=== PATIENT | male | born 1990 | race Caucasian/White ===

== ENCOUNTER 2023-03-14 08:02 | Emergency (ER) | payer BC, SELFPAY ==
[2023-03-14 08:07] VITALS: BP 131/90; PULSE 84; RESP 16; TEMP 35.5; O2SAT 96; BMI 25.8
[2023-03-14 08:54] LABS: Basophils Absolute Auto 0.03 K/uL (0.00-0.30); Basophils Percent Auto 0.4 % (0.0-3.0); Eosinophils Absolute Auto 0.44 K/uL (0.00-0.50); Eosinophils Percent Auto 6.2 % (0.0-7.0); Hematocrit 47.1 % (37.0-53.0); Hemoglobin* 16.1 gm/dL (13.5-17.5); Immature Granulocytes Abs Auto 0.02 K/uL (0.00-0.30); Immature Granulocytes Pct Auto 0.3 %; Lymphocytes Percent Auto 25.4 % (20-44); Mean Corpuscular HGB Conc 34 gm/dL (32-36); Mean Corpuscular Hemoglobin 29 pg (26-34); Mean Corpuscular Volume 85 fL (80-100); Monocytes Percent Auto 6.2 % (0.0-11.0); Neutrophils Absolute Auto 4.36 K/uL (1.7-7.0); Neutrophils Percent Auto 61.5 % (42.0-72.0); Platelet Count* 223 K/uL (140-440); RDW Coefficient of Variation % 12.3 % (11.5-15.5); Red Blood Count 5.57 m/uL (4.30-5.90); Slide Review Reflex No; White Blood Count* 7.09 K/uL (4.50-11.00)
[2023-03-14 09:07] LABS: Albumin* 4.7 g/dL (3.3-5.0); Chloride* 103 mmol/L (96-114)
[2023-03-14 09:08] LABS: Potassium* 4.2 mmol/L (3.6-5.1); Sodium* 140 mmol/L (135-149)
[2023-03-14] MEDS: SUCRALFATE 1 GM TABLET PO (09:08)
[2023-03-14 09:10] LABS: Anion Gap 8 mEq/L (7-15); Aspartate Amino Transferase* 24 U/L (12-35); Bilirubin Total* 1.7 mg/dL (0.1-1.5); Carbon Dioxide* 29 mmol/L (20-32); Creatinine* 0.9 mg/dL (0.5-1.5); Est. Creatinine Clearance* 125.74; Estimated Glomerular Filt Rate 114 ml/min; Total Protein* 7.2 g/dL (6.0-8.3)
--- NOTE | 2023-03-14 09:10 | ED.GENADULT ---
HPI - General Adult General Date Seen: 03/14/23 Chief complaint: Abdominal Pain Stated complaint: abdominal pain, lower back pain Time Seen by Provider: 03/14/23 08:13 History of Present Illness HPI narrative: This is a pleasant 33-year-old male with a past medical history including depression, anxiety, prior appendectomy, otherwise generally healthy who presents to the ER today with subxiphoid/epigastric abdominal pain. He does note that he has a history of some chronic pain affecting his lower back. It generally is an irritant but not bothersome enough that he would normally take medicines for it. He does not really need to see a doctor or a customer retention specialist for it. He takes ibuprofen or Tylenol perhaps once a month for his back. His back pain has been a little bit worse for the past couple of days, without any clear trigger. However, he is not really here for his back pain. He notes that since about 2:00 p.m. yesterday he has been having upper central abdominal pain. He ate turkey sandwich at a corner bar yesterday afternoon and then about 2 hours after that began to have pain. Pain has been sharp. It has been continuous. It was bothersome yesterday evening any thought about coming to the ER, but he wanted to wait to see if the pain would go away on its own. He tried to go to sleep and rest last night. Pain persisted throughout the night. It is more intense this morning. It hurts more when he breathes deeply or when he moves. When he previous is normal respiratory depth and is relaxing, the pain is fairly mild. It is not migrating. It does not radiate from his epigastrium. It does not really go to the right or to the left or through to his back. No right upper quadrant pain. No fever. Mild nausea. No vomiting. Pain does not feel similar to when he has had ?stomach acid problems? in the past. Bowel movements have been normal. Urination normal. No rash. No injury. Although he does not have a previous diagnosis of pancreatitis, thinks he might have pancreatitis. . I reviewed his previous medical records. CT scan a couple of years ago diagnosed acute appendicitis. On that CT scan liver, gallbladder, pancreas were reported to be normal. Related Data Home Medications Medication Instructions Recorded Confirmed bupropion HCl 150 mg 24 hr tablet, 150 mg PO QAM 09/29/22 03/14/23 extended release citalopram 40 mg tablet 40 mg PO DAILY 09/29/22 03/14/23 methylphenidate HCl 54 mg 54 mg PO QAM 09/29/22 03/14/23 tablet,extended release 24 hr Allergies Allergy/AdvReac Type Severity Reaction Status Date / Time No Known Drug Allergies Allergy Verified 09/29/22 08:56 [facility] Medical History (Updated 03/14/23 @ 10:01 by Anil Elizabeth MD) Maxillary sinusitis ?J32.0 - Chronic maxillary sinusitis (ICD-10) Social History Smoking Status: Never smoker How often do you have a drink containing alcohol: 4 or more times a week How many standard drinks containing alcohol do you have on a typical day: 3 or 4 AUDIT-C Alcohol total score: 5 Non-prescribed substance use: denies use Exam Narrative: Exam Narrative: Constitutional: Appears well-developed and well-nourished. Alert. Conversant. Non toxic. HENT: Head: Atraumatic. Nose: Nose normal. Mouth/Throat: Oral mucosa is clear and moist. no trismus. Pharynx normal. Tonsils symmetric. No tonsillar enlargement, erythema, or exudate. Eyes: Conjunctivae normal. EOM normal. Pupils equal, round, and reactive to light. No scleral icterus. Neck: Normal range of motion. Neck supple. No tracheal deviation present. Cardiovascular: Normal rate, regular rhythm. No gallop. No friction rub. No murmur heard. Symmetric radial artery pulses Pulmonary/Chest: Effort normal. No stridor. No respiratory distress. No wheezes. No rales. No rhonchi . No tenderness. Abdominal: Soft. Bowel sounds normal. No distension. No mass. Epigastric tenderness. No right upper quadrant tenderness or Drew sign. No HSM. No left upper quadrant tenderness. No CVA tenderness. No lower tenderness. No rebound. No guarding. Musculoskeletal: RUE: Normal range of motion. No tenderness. No deformity LUE: Normal range of motion. No tenderness. No deformity RLE: Normal range of motion. No edema. No tenderness. No deformity LLE: Normal range of motion. No edema. No tenderness. No deformity Lymph: No cervical adenopathy. Neurological: Alert and oriented to person, place, and time. Normal strength. CN II-VII intact. No sensory deficit. GCS eye subscore is 4. GCS verbal subscore is 5. GCS motor subscore is 6. Normal coordination Skin: Skin is warm and dry. No rash noted. No pallor. Normal capillary refill. Psychiatric: Normal mood. Normal affect. Const: Vital Signs, click to edit/add: Vital Signs - 24 hr 03/14/23 08:07 Temperature 96 F L Pulse Rate [Pulse Oximeter] 84 Respiratory Rate 16 Blood Pressure [Ri ght Upper Arm] 131/90 H Pulse Oximetry 96 Oxygen Delivery Me thod Room Air Course Course ED Course: Recheck-hemodynamically stable. Still declines pain med. We had a long discussion of lab findings, potential causes for pancreatitis, gallbladder imaging, alcohol consumption, and typical care for a 1st episode of acute pancreatitis. Wants to go home Vital Signs Vital signs: Initial Vital Signs Temperature 96 F L 03/14/23 08:07 Temperature Source Temporal Artery Scan 03/14/23 08:07 Pulse Rate 84 03/14/23 08:07 Respiratory Rate 16 03/14/23 08:07 Blood Pressure 131/90 H 03/14/23 08:07 Blood Pressure Mean 103 03/14/23 08:07 Blood Pressure Position Supine 03/14/23 08:07 Pulse Oximetry 96 03/14/23 08:07 Oxygen Delivery Method Room Air 03/14/23 08:07 Vital Signs Temperature 96 F L 03/14/23 08:07 Pulse Rate 84 03/14/23 08:07 Respiratory Rate 16 03/14/23 08:07 Blood Pressure 131/90 H 03/14/23 08:07 Pulse Oximetry 96 03/14/23 08:07 Oxygen Delivery Method Room Air 03/14/23 08:07 Temperature 96 F L 03/14/23 08:07 Pulse Rate 84 03/14/23 08:07 Respiratory Rate 16 03/14/23 08:07 Blood Pressure 131/90 H 03/14/23 08:07 Pulse Oximetry 96 03/14/23 08:07 Oxygen Delivery Method Room Air 03/14/23 08:07 Medications Administered Medications: Generic Name Dose Route Start Last Admin Trade Name Freq PRN Reason Stop Dose Admin Sucralfate 1 gm 03/14/23 11:30 03/14/23 09:08 Sucralfate 1 Gm Tablet PO 1 gm ACHS TAYLOR Administration Medical Decision Making MDM Narrative Medical decision making narrative: Presented to the Emergency Department with epigastric abdominal pain. The differential diagnosis of abdominal pain includes: Recurrent appendicitis, Bowel Obstruction, Ulcer, Ischemia, Cholecystitis, Diverticulitis, Pancreatitis, UTI, kidney stone, Enteritis/Colitis, amongst many other etiologies. Laboratory workup shows elevated bilirubin and elevated lipase is 644. Although this is not 3 times the upper limit of normal, but with these symptoms we are suspicious that abnormal lipase does indicate acute pancreatitis. Symptoms began less than 24 hours ago. He has never had previous similar symptoms so doubt recurrent or chronic appendicitis. In discussed with the patient he does report that he did drink several beers yesterday. We discussed mental causes pancreatitis. He has had previous CT scan a couple years ago that did not show any obvious stones in the gallbladder. Nonetheless, he could have potentially formed stones in the past couple of years or may have had stones that were not radiopaque on the CT scan at the time of previous imaging. I had ordered a gallbladder ultrasound today, but upon discussing with patient, we decided to hold off, given low likelihood of stones. Patient is very suspicious that this is probably alcohol induced pancreatitis. He does not want a gallbladder ultrasound. Would hold off on CT imaging, given low likelihood for pseudocyst or other necrotizing complication at this stage of illness We discussed that acute pancreatitis often requires hospitalization, IV pain meds, IV fluids for NPO status, and supportive care. Patient adamantly wants to avoid IV meds or IV fluids or hospitalization. He feels comfortable that he will be able to the get through the pain at home without any meds at all. He will stick to a clear liquid diet today, add crackers and easily-adjustable foods tomorrow and advance diet from there. We discussed the potential for worsening pancreatitis if he tries to manage at home. He understands and return to the ER if he does have any worsening symptoms. We also discussed that he needs outpatient follow-up within the next 3-5 days for repeat labs and repeat exam. He will obtain from alcohol. Patient questions whether not he needs to abstain from alcohol permanently or temporarily. I advised complete abstinence in the short a near term. He will follow-up with his doctor. Potentially, once his pancreatitis is completely subsided, he could possibly return to light, occasional alcohol consumption. The patient was advised that if symptoms do not completely resolve within another 48-72 hours re-evaluation with primary care or return to the ED is indicated. Even if he completely improve he she recheck with primary care next week. The patient also understands that if they worsen, they should return to the ER right away. I discussed the uncertainty about the diagnosis and answered the patient's questions. Abdominal pain return precautions discussed. Lab Data Labs: Lab Results 03/14/23 Range/Units 08:45 WBC 7.09 (4.50-11.00) K/uL RBC 5.57 (4.30-5.90) m/uL Hgb 16.1 (13.5-17.5) gm/dL Hct 47.1 (37.0-53.0) % MCV 85 (80-100) fL MCH 29 (26-34) pg MCHC 34 (32-36) gm/dL RDW Coeff of Dione 12.3 (11.5-15.5) % Plt Count 223 (140-440) K/uL Neut % (Auto) 61.5 (42.0-72.0) % Lymph % (Auto) 25.4 (20-44) % Brantley % (Auto) 6.2 (0.0-11.0) % Eos % (Auto) 6.2 (0.0-7.0) % Baso % (Auto) 0.4 (0.0-3.0) % Neut # (Auto) 4.36 (1.7-7.0) K/uL Lymph # (Auto) 1.80 (0.90-2.90) K/uL Brantley # (Auto) 0.40 (0.00-0.90) K/UL Eos # (Auto) 0.44 (0.00-0.50) K/uL Baso # (Auto) 0.03 (0.00-0.30) K/uL Abs Immat Gran (auto) 0.02 (0.00-0.30) K/uL Imm/Tot Granulo (auto) 0.3 % Sodium 140 (135-149) mmol/L Potassium 4.2 (3.6-5.1) mmol/L Chloride 103 (96-114) mmol/L Carbon Dioxide 29 (20-32) mmol/L Anion Gap 8 (7-15) mEq/L BUN 12 (5-24) mg/dL Creatinine 0.9 (0.5-1.5) mg/dL Estimated Creat Clear 125.74 Estimated GFR 114 ml/min Glucose 107 (60-115) mg/dL Calcium 9.2 (8.4-10.6) mg/dL Total Bilirubin 1.7 H (0.1-1.5) mg/dL AST 24 (12-35) U/L ALT 19 (4-50) U/L Alkaline Phosphatase 40 (40-150) U/L Total Protein 7.2 (6.0-8.3) g/dL Albumin 4.7 (3.3-5.0) g/dL Lipase 633 H (23-300) U/L Discharge Plan Discharge Clinical Impression: Acute pancreatitis Patient Disposition: Home, Self-Care Condition: Stable Instructions: Pancreatitis (ED) Additional Instructions: As we discussed, return to the ER right away if you have worsening pain, vomiting, fever, weakness, or any problems. Abstain from alcohol. Today, drink an clear liquid diet. Add easily digestible foods when you are feeling better. Over the next few days, you can slowly add in other foods. Recheck with your doctor within 4-5 days for reacheck labs. Prescriptions: No Action methylphenidate HCl 54 mg tablet extended release 24hr 54 mg PO QAM citalopram 40 mg tablet 40 mg PO DAILY bupropion HCl 150 mg tablet extended release 24 hr 150 mg PO QAM Follow Up/Referrals: Provider,Not a Local [Primary Care Provider] - Stand Alone Forms: [facility] Info Instructions
[2023-03-14 09:11] LABS: Alanine Aminotransferase* 19 U/L (4-50); Alkaline Phosphatase* 40 U/L (40-150); Blood Urea Nitrogen* 12 mg/dL (5-24); Calcium* 9.2 mg/dL (8.4-10.6); Glucose* 107 mg/dL (60-115); Lipase* 633 U/L (23-300)
== END 2023-03-14 10:14 | disposition home or self-care (01) ==
PROVIDERS: Emergency Provider Emergency Medicine
DX: K85.90 Acute pancreatitis without necrosis or infection, unspecified (principal)
CPT/HCPCS: 36415; 80053; 83690; 85025; 99284; A9270